=== PATIENT | male | born 2000 | race Caucasian/White ===

== ENCOUNTER 2021-04-13 03:12 | Emergency (ER) | payer BC ==
[2021-04-13 03:20] VITALS: BP 118/71; PULSE 95; TEMP 98.8; BMI 22.6
== END 2021-04-13 03:43 | disposition home or self-care (01) ==
LOC: FER 03:12
DX: S01.81XA Laceration without foreign body of other part of head, initial encounter (principal)
CPT/HCPCS: 99282-25